=== PATIENT | female | born 1985 | race Caucasian/White ===

== ENCOUNTER 2017-12-30 19:20 | Emergency (ER) | payer OTHER ==
[~2017-12-30] VITALS: Ht 162.5 cm; Wt 64.9 kg
[~2017-12-30 19:20] MED LIST: 'PARAFON FORTE500 M1 PO; BENTYL10 MG PO; LAMICTAL25 MG PO; MOTRIN800 MG PO; NAPROSYN500 MG PO; NEURONTIN100 MG PO; PROZAC40 M1 PO; ZYRTEC10 MG PO; Zofran4 MG PO
[2017-12-30 19:21] VITALS: BP 120/99
[2017-12-30] MEDS ORDERED: CLINDAMYCIN150 MG PO (19:55)
[2017-12-30] MEDS ORDERED: NAPROSYN500 MG PO (19:55)
[2017-12-30] MEDS ORDERED: Zofran4 MG SL (20:11)
== END 2017-12-30 19:58 | disposition home or self-care (01) ==
LOC: ED 19:20
DX: K08.89 Other specified disorders of teeth and supporting structures (principal); Z79.899 Other long term (current) drug therapy

== ENCOUNTER → 2021-03-26 | Outpatient (CLI) | payer BC ==
[~2021-03-26] MED LIST changes: +CLINDAMYCIN150 MG PO; +Zofran4 MG SL
== END | disposition home or self-care (01) ==
LOC: US 10:30
PROVIDERS: ATTEND Family Medicine
DX: N60.12 Diffuse cystic mastopathy of left breast (principal)

== ENCOUNTER → 2021-06-21 | Outpatient (CLI) | payer BC | END | disposition home or self-care (01) | LOC: COVID19 15:17 | PROVIDERS: ATTEND Internal Medicine | DX: Z11.52 Encounter for screening for COVID-19 (principal) ==

== ENCOUNTER 2024-03-14 21:32 | Emergency (ER) | payer OTHER ==
[~2024-03-14] VITALS: Ht 162.5 cm; Wt 59.0 kg
[2024-03-14 21:44] VITALS: BP 123/62
[2024-03-14] MEDS ORDERED: CYMBALTA60 MG PO (21:45)
[2024-03-14] MEDS ORDERED: METOPROLOL SUCC25 M2 PO (21:46)
[2024-03-14] MEDS ORDERED: TRAZODONE50 MG PO (21:47)
[2024-03-14] MEDS ORDERED: ROPINIROLE HYDRO3 MG PO (21:47)
[2024-03-14] MEDS ORDERED: RIZATRIPTAN10 MG PO (21:47)
[2024-03-14] MEDS ORDERED: IBUPROFEN 600 MG TAB PO ONE (22:00)
== END 2024-03-14 22:24 | disposition home or self-care (01) ==
LOC: ED 21:32
DX: S93.402A Sprain of unspecified ligament of left ankle, initial encounter (principal); F32.A Depression, unspecified; F41.9 Anxiety disorder, unspecified; Z98.890 Other specified postprocedural states; X50.1XXA Overexertion from prolonged static or awkward postures, initial encounter; Y93.89 Activity, other specified; Y92.89 Other specified places as the place of occurrence of the external cause; Y99.8 Other external cause status

== ENCOUNTER 2024-07-21 04:03 | Emergency (ER) | payer BC ==
[~2024-07-21] VITALS: Ht 162.5 cm; Wt 56.7 kg
[~2024-07-21 04:03] MED LIST changes: +CYMBALTA60 MG PO; +METOPROLOL SUCC25 M2 PO; +RIZATRIPTAN10 MG PO; +ROPINIROLE HYDRO3 MG PO; +TRAZODONE50 MG PO
[2024-07-21 04:11] VITALS: BP 150/69
[2024-07-21 04:36] LABS: BILIRUBIN Negative (Negative); BLOOD Negative (Negative); CLARITY Turbid (Clear); COLOR Dark Yellow (Yellow); GLUCOSE Negative (Negative); KETONE Trace (Negative); LEUKO ESTERASE Trace (Negative); NITRITE Negative (Negative)
[2024-07-21 04:37] LABS: HEMATOCRIT 35.1 % (37.0-47.0); MEAN CORPUSCULAR HGB 28.4 pg (27.0-31.0); MEAN PLATELET VOLUME 10.5 fl (9.6-12.3); PLATELET COUNT AUTOMATED 306 10*3/uL (130-400); RED BLOOD COUNT 4.08 10*6/uL (4.10-5.10); RED CELL DISTRI WIDTH 13.5 % (0-14.5); WHITE BLOOD COUNT 10.3 10*3/uL (4.8-10.8)
[2024-07-21 04:38] LABS: MANUAL DIFF REFLEX YES
[2024-07-21 04:39] LABS: PH >= 9.0 (4.5-8.0)
[2024-07-21 04:44] LABS: URINE AMPHETAMINES Negative (1000ng/ml); URINE BARBITURATES Negative (200ng/ml); URINE BENZODIAZEPINES Negative (200ng/ml); URINE CANNABINOIDS (THC) Positive (50ng/ml); URINE COCAINE Negative (300ng/ml); URINE METHADONE Negative (300ng/ml); URINE OPIATES Negative (300ng/ml); URINE PHENCYCLIDINE Negative (25ng/ml)
[2024-07-21 04:57] LABS: BASOPHILS 1 % (0-1); PLATELET SUFFICIENCY NORMAL (NORMAL); TOTAL CELLS COUNTED 100 #CELLS
[2024-07-21 04:58] LABS: ALKALINE PHOSPHATASE 81 U/L (46-116); BUN 7 mg/dl (9-23); CHLORIDE 106 mmol/L (98-107); LIPASE 31 U/L (12-53); SGPT/ALT 90 U/L (5-49)
[2024-07-21 05:00] LABS: ETHYL ALCOHOL < 3.0 mg/dl (<3)
[2024-07-21 05:01] LABS: EPITHELIAL CELLS 21-30
[2024-07-21 05:02] LABS: BACTERIA 3+
[2024-07-21] MEDS ORDERED: Ondansetron Hydrochloride 4 MG/2 ML VIAL IV ONE (05:10)
[2024-07-21] MEDS ORDERED: MORPHINE Sulfate 2 MG/ML SYR IV ONE (05:10)
[2024-07-21] MEDS ORDERED: Phenazopyridine Hydrochlorid2 100 MG TAB PO ONE (05:40)
[2024-07-21] MEDS ORDERED: Ciprofloxacin Hydrochloride 500 MG TAB PO ONE (05:40)
[2024-07-21] MEDS ORDERED: MELOXICAM15 MG PO (05:43)
[2024-07-21] MEDS ORDERED: CIPRO500 MG PO (05:43)
[2024-07-21] MEDS ORDERED: METRONIDAZOLE500 M1 PO (05:43)
[2024-07-21] MEDS ORDERED: Ondansetron4 MG PO (05:43)
[2024-07-21] MEDS ORDERED: Metoclopramide Hydrochloride 10 MG/2 ML VIAL IV ONE (06:00)
[2024-07-21] MEDS ORDERED: diphenhydrAMINE hydrochloride 50 MG/ML VIAL IV ONE (06:00)
== END 2024-07-21 06:06 | disposition home or self-care (01) ==
LOC: ED 04:03
PROVIDERS: Internal Medicine
DX: K52.9 Noninfective gastroenteritis and colitis, unspecified (principal); D64.9 Anemia, unspecified; N39.0 Urinary tract infection, site not specified; R11.2 Nausea with vomiting, unspecified; F32.A Depression, unspecified; F41.9 Anxiety disorder, unspecified; Z79.899 Other long term (current) drug therapy; Z98.890 Other specified postprocedural states